=== PATIENT | female | born 1985 | race Caucasian/White ===

== ENCOUNTER 2018-01-17 19:42 | Emergency (ER) | END 2018-01-17 23:15 | disposition home or self-care (01) ==

== ENCOUNTER 2018-06-03 11:20 | Inpatient (IN) | payer MEDICAID ==
[~2018-06-03] VITALS: Ht 157.5 cm; Wt 107.4 kg
[~2018-06-03 11:20] MED LIST: PREN1TAB49 PO
[2018-06-03 11:27] VITALS: Ht 157.5 cm; Wt 107.4 kg
[2018-06-03 12:07] VITALS: BP 107/73; PULSE 65
--- NOTE | 2018-06-03 13:08 | TRIAGE ---
OB Triage Datetime Report Generated by CPN: 06/03/2018 13:08 Datetime: 06/03/2018 12:59 Vaginal Exam Dilatation (cms): 3.0 Effacement (%): 60 Station: -2 Exam By: may Datetime: 06/03/2018 12:58 Stage of : OB Triage Maternal Assessment Level of Consciousness: Fully Conscious Labor Evaluation Frequency: 2-6 Monitor Mode: External Duration (sec)2399: 90-130 Quality: Mild Resting Tone [place]: Relaxed Heart Rate FHR Baseline Rate: 125 Monitor Mode: External US Variability: Moderate 6-25 bpm Accelerations: 15X15 Decelerations: None Category: Category I Pain Assessment Pain Scale: 0 Pain Goal: 3 Membrane Status: Intact Vaginal Bleeding: None Datetime: 06/03/2018 12:24 Monitor Mode: External Monitor Mode: External US Datetime: 06/03/2018 11:26 Assessment Type: Triage Maternal Assessment Level of Consciousness: Fully Conscious DTR's/Clonus: DTRs 2+; No Clonus Headache: Denies Blurred Vision: No Respiratory Effort: Unlabored; Regular Rhythm; Equal Expansion Breath Sounds, Left: Clear and Equal Breath Sounds, Right: Clear and Equal Nausea/Vomiting: Denies RUQ Epigastric Pain: Denies Lower Extremities Edema: None Degree: None Upper Extremities Edema: None Degree: None Facial Edema: None Fall Risk Assessment History of Falling: (0) No Secondary Diagnosis: (0) No Ambulatory Aid: (0) Bedrest/Nurse Assist IV Therapy: (0) No Gait: (0) Normal/Bedrest/Immobile Mental Status: (0) Oriented to Own Ability Fall Score: 0 Fall Risk Score Definition: No Risk: No action required Datetime: 06/03/2018 11:25 Time of Arrival: 06/03/2018 11:17 EGA: 39.1 Arrived By: Ambulatory Arrived From: Home Chief Complaint: NST/BPP FOR OBESITY Movement: Present Contractions: Denies/Absent Rupture of Membranes: Denies Vaginal Bleeding: None Vaginal Discharge: Denies Recent Sexual Intercouse: Denies Abdominal Trauma: Not Applicable Patient Complaints: None Time Provider Notified: 06/03/2018 12:00 Provider Notified: HADADIAN Initial Plan: NST/BPP Datetime: 05/07/2018 12:44 Fall Score: 0 Fall Risk Score Definition: No Risk: No action required Datetime: 05/07/2018 12:43 EGA: 35.2
[2018-06-03] MEDS ORDERED: LACTATED RINGER'S 1,000 ML IV PRN (13:19)
[2018-06-03] MEDS ORDERED: METHYLERGONOVINE 0.2 MG INJ IM PRN (13:30)
[2018-06-03] MEDS ORDERED: OXYTOCIN 30 UNITS/LR 500 ML IV SCH ×4 (13:30→23:36)
[2018-06-03] MEDS ORDERED: OXYTOCIN 30 UNITS/LR 500 ML IV PRN (13:30)
[2018-06-03] MEDS ORDERED: CARBOPROST 250 MCG INJ IM PRN (13:30)
[2018-06-03] MEDS ORDERED: LIDOCAINE 1% (MPF) 30 ML INJ INJ PRN (13:30)
[2018-06-03] MEDS ORDERED: BUTORPHANOL 2 MG INJ IV PRN (13:30)
[2018-06-03] MEDS ORDERED: MISOPROSTOL 200 MCG TAB PR PRN (13:30)
[2018-06-03] MEDS ORDERED: OXYCODONE/ASPIRIN (4.88/325) TAB PO PRN (13:30)
[2018-06-03] MEDS ORDERED: IBUPROFEN 600 MG TAB PO PRN (13:30)
[2018-06-03] MEDS: LACTATED RINGER'S 1,000 ML IV SCH ×3 (14:38→21:35)
--- NOTE | 2018-06-03 16:33 | HP ---
Date/Time of Note Date/Time of Note DATE: 06/03/18 TIME: 16:28 OB - History Hx of Present Free Text/Dictation 32-year-old with single intrauterine at 39 weeks and 1 day with a NACHO of 06/09/2018 complaining of uterine contractions. She states good movement. She denies nausea, vomiting, shortness of breath, chest pain, headache, visual changes, vaginal bleeding or LOF. Chief Complaint: Uterine contractions Estimated Due Date: Jun 09, 2018 : 5 Para: 3 Spontaneous : 1 Therapeutic : 0 Care: Good Care Ultrasounds: Normal mid trimester US Obstetrical Complications: None Medical Complications: None Past Family/Social History * Past Medical, Surgical, Family and Obstetric Histories reviewed from chart. Blood Type: O+ Rubella: immune RPR/VDRL: Negative GBS Status: Negative OB Admission Exam Vital Signs Vital Signs Vital Signs Date Temp Pulse Resp B/P (MAP) Pulse Ox O2 O2 Flow FiO2 Time Delivery Rate 06/03/18 98.4 65 107/73 12:07 (84) Physical Exam HEENT: WNL Heart: Rhythm Normal Lungs: Clear Abdomen: WNL Extremities: Normal Cervical Dilatation: 4cm Effacement: 75% Station: -2 Membranes: Intact Heart Rate: 140's Accelerations: Accelerations Present Decelerations: No Decelerations Varibility: Moderate Contractions on Admission: < 5 Minutes Apart Intensity: Moderate Last 72 hours Lab Results CBC & BMP 06/03/18 14:17 OB Assessment/Plan Other plan: 32-year-old with single intrauterine at 39 weeks and 1 day in labor - FHR: No sign of metabolic acidosis- Category I - Continuous EFM, toco - CBC, blood type and screen - Analgesia options with R/B/A discussed in detail with patient - Epidural per patient request - Please see the orders - O+/RI - GBS: neg Obtain record Admission, procedures, expectations, risks and possible complications have been discussed in detail with the patient. Risk of vaginal delivery including but not limited to bleeding, infection, cervical laceration, placental retention, injury to fetus, blood transfusion, blood transfusion related infection, risk of anesthesia, adhesion, cervical laceration, episiotomy/laceration, possible delivery with risk of bleeding, infection, injury to other organs (bowel, bladder, ureter, vessels, nerves), injury to fetus, blood transfusion, blood transfusion related infection, risk of anesthesia, scar and hernia formation, needs for future , removal of uterus or any other indicated surgery discussed with the patient. She expressed understanding and repeats the risks. All of her questions were answered. She signed the informed consent. PHYSICIAN'S VERIFICATION OF INFORMED CONSENT The patient was counseled regarding the procedure, its indications, risks, potential complications and alternatives and any questions were answered. Consent was obtained. PLANNED PROCEDURE/TREATMENT: Vaginal delivery, episiotomy, repair of laceration possible delivery CONNIE BAGLEY Jun 03, 2018 16:33
--- NOTE | 2018-06-03 18:33 | PREAC ---
Date/Time of Note Date/Time of Note DATE: 06/03/18 TIME: 18:32 Anesthesia Eval and Record Evaluation Time Pre-Procedure Interview DATE: 06/03/18 TIME: 18:32 Age 32 Sex female NPO: 8 hrs Preoperative diagnosis IUP Planned procedure L&D Epidural Past Medical History Past Medical History: None Surgery & Anesthesia Issues No known issue Meds Anticoagulation: No Beta Chantelle within 24 hr: No Reason Beta Chantelle not given: Pt. not on B-Chantelle Reported Medications Vits W-Ca,Fe,Fa(<1MG) () 1 Tab Tablet, 1 TAB PO DAILY 09/21/11 Current Medications Lactated Ringer's 1,000 ml @ 125 mls/hr Q8H IV Last administered on 06/03/18at 14:38; Admin Dose 125 MLS/HR; Start 06/03/18 at 13:19 Butorphanol Tartrate (Stadol) 2 mg Q2H PRN IV .PAIN; Start 06/03/18 at 13:30 Lidocaine (Xylocaine 1% (Mpf)) 30 ml ONCE PRN INJ .EPISIOTOMY; Start 06/03/18 at 13:30 Oxytocin/Lactated Ringer's 500 ml @ 500 mls/hr ONCE POST IV ; Start 06/03/18 at 13:30 Oxytocin/Lactated Ringer's 500 ml @ 125 mls/hr POST IV ; Start 06/03/18 at 13:30 Ibuprofen (Motrin) 600 mg ONCE PRN PO .PAIN 1-5; Start 06/03/18 at 13:30 Oxycodone/Aspirin (Percodan) 2 tab ONCE PRN PO .PAIN 6-10; Start 06/03/18 at 13:30 Lactated Ringer's 1,000 ml @ 2,000 mls/hr Q30M PRN IV .ANESTHESIA Last administered on 06/03/18at 18:20; Admin Dose 2,000 MLS/HR; Start 06/03/18 at 13:19 Oxytocin/Lactated Ringer's 500 ml @ 0 mls/hr ONCE PRN IV .VAGINAL BLEEDING; Sta rt 06/03/18 at 13:30 Methylergonovine Maleate (Methergine) 0.2 mg ONCE PRN IM .VAGINAL BLEEDING; Sta rt 06/03/18 at 13:30 Carboprost Tromethamine (Hemabate) 250 mcg ONCE PRN IM .VAGINAL BLEEDING; Start 06/03/18 at 13:30 Misoprostol (Cytotec) 1,000 mcg ONCE PRN DC .VAGINAL BLEEDING; Start 06/03/18 at 13:30 Meds reviewed: Yes Allergies Coded Allergies: No Known Allergy (Unverified , 09/21/11) Allergies Reviewed: Yes Labs/Studies Labs Reviewed: Reviewed by anesthesiologist Result Diagram: 06/03/18 1417 Laboratory Tests 06/03/18 14:17 Blood Bank Test 06/03/18 14:17 Antibody Screen NEGATIVE Blood Type O POSITIVE Rh Immune Globulin Candidate NO test: Positive Studies: ECG Pre-procedure Exam Last vitals Vital Signs Date Temp Pulse Resp B/P (MAP) Pulse Ox O2 O2 Flow FiO2 Time Delivery Rate 06/03/18 98.4 65 107/73 12:07 (84) Airway: Adequate mouth opening, Adequate thyromental dist Mallampati: Mallampati II Teeth: Normal Lung: Normal Heart: Normal ASA Physical Status ASA physical status: 2 Emergency: None Planned Anesthetic Neuraxial: Epidural Planned Pain Management Epidural, Parenteral pain med Pre-operative Attestations Prior to commencing anesthesia and surgery, the patient was re-evaluated, there was verification of: *The patient's identity *The results of appropriate recent lab work and preoperative vital signs *The above evaluation not changing prior to induction *Anesthetic plan, risk benefits, alternative and complications discussed with patient/family; questions answered; patient/family understands, accepts and wishes to proceed. COLLETTE MODI MD Jun 03, 2018 18:33
[2018-06-03] MEDS ORDERED: FENTAnyl 2MCG/ML-ROPIV 0.2% 100 ML ONE (18:37)
[2018-06-03] MEDS ORDERED: FENTAnyl 2MCG/ML-ROPIV 0.2% 100 ML BAG EPI SCH (19:00)
[2018-06-03] MEDS ORDERED: ONDANSETRON 4 MG INJ IV PRN (19:00)
[2018-06-03] MEDS ORDERED: NALOXONE (0.4 MG/ML) INJ IV PRN (19:00)
[2018-06-03] MEDS ORDERED: DIPHENHYDRAMINE 50 MG INJ IV PRN (19:00)
--- NOTE | 2018-06-03 23:36 | LDN ---
Date/Time of Note Date/Time of Note DATE: 06/03/18 TIME: 23:32 Delivery Summary 06/03/2018 Placenta Delivered: Spontaneously Meconium: none Episiotomy: No Indication for episiotomy N/A Perineal laceration: 1 Laceration repair: First degree perineal laceration, repaired using 3-0 chromic Anesthesia type: Epidural Estimated blood loss: 200 Sponge & Needle done & correct: Yes All needle counts correct: Yes Any foreign bodies felt in the: No Delivery Information Sex Infant Sex: female Apgars 1 Minute: 8 5 Minute: 9 Suctioning Nose & mouth suctioned at stanislaw: Yes Delee suction performed: Yes Umbilical Cord Umbilical cord with: 3 Vessels Cord presentations: no nuchal cord Cord Blood was obtained: Yes Mother & Baby Disposition Disposition Placenta delivered complete. Hemostasis complete. No complications Fundus was firm at the end of the delivery first degree perineal laceration repaired using 3-0 chromic EMILY BRISCOE MD Jun 03, 2018 23:36
[2018-06-04] MEDS ORDERED: ONDANSETRON 4 MG INJ IV PRN
[2018-06-04] MEDS ORDERED: MISOPROSTOL 200 MCG TAB PR PRN
[2018-06-04] MEDS ORDERED: METHYLERGONOVINE 0.2 MG INJ IM PRN
[2018-06-04] MEDS ORDERED: CARBOPROST 250 MCG INJ IM PRN
[2018-06-04] MEDS ORDERED: WITCH HAZEL/GLYCERIN PAD PR PRN
[2018-06-04] MEDS ORDERED: OXYTOCIN 30 UNITS/LR 500 ML IV PRN
[2018-06-04] MEDS ORDERED: DIPHENHYDRAMINE 25 MG CAP PO PRN
[2018-06-04] MEDS ORDERED: LANOLIN HPA 1 PKT TOP PRN
[2018-06-04] MEDS ORDERED: NACL 0.9% 3 ML SYG IV SCH
[2018-06-04] MEDS ORDERED: ZOLPIDEM 5 MG TAB PO PRN
[2018-06-04 01:10] VITALS: BP 104/61; PULSE 61; RESP 18
[2018-06-04] MEDS: IBUPROFEN 600 MG TAB PO SCH ×5 (01:25→23:43)
[2018-06-04 03:35] VITALS: BP 121/75; PULSE 71; RESP 18
[2018-06-04] MEDS: HYDROCODONE/APAP (5/325) TAB PO PRN (09:11)
[2018-06-04] MEDS: SENNA/DOCUSATE NA (8.6MG/50MG) TAB PO SCH ×3 (09:11→20:16)
[2018-06-04 09:29] VITALS: BP 97/56; PULSE 65; RESP 18
--- NOTE | 2018-06-04 11:28 | PN ---
Date/Time of Note Date/Time of Note DATE: 06/04/18 TIME: 11:24 OB Subjective Subjective Subjective Vaginal bleeding moderate. Pumping her breast. Ambulating. Urinated. Denies any complaint. Reports only cramps with breast-feeding. Denies any dizziness or lightheadedness. OB Objective Objective Objective General appearance: Alert and oriented x4 does not appear to be in any acute distress Abdomen: Soft, fundus firm and non tender Extremities: No calf tenderness, + 2 lower extremity edema, Breasts: no evidence of mastitis or fissure noted VS - Last 72 Hours, by Label Date Temp Pulse Resp B/P (MAP) Pulse Ox O2 O2 Flow FiO2 Time Delivery Rate 06/04/18 98.3 65 18 97/56 (70) Room Air 09:29 06/04/18 98.1 71 18 121/75 Room Air 03:35 (90) 06/04/18 98.0 61 18 104/61 Room Air 01:10 (75) 06/03/18 98.4 65 107/73 12:07 (84) Laboratory Tests Test 06/03/18 14:17 06/04/18 00:23 06/04/18 07:54 White Blood Count 9.1 10^3/ul Red Blood Count 4.49 10^6/ul Hemoglobin 13.4 g/dl 12.8 g/dl Hematocrit 39.7 % 39.0 % Mean Corpuscular Volume 88.4 fl Mean Corpuscular 29.8 pg Hemoglobin Mean Corpuscular 33.8 g/dl Hemoglobin Concent Red Cell Distribution 14.1 % Width Platelet Count 180 10^3/UL Mean Platelet Volume 11.4 fl Immature Granulocytes % 0.700 % Neutrophils % 69.0 % Lymphocytes % 25.8 % Monocytes % 4.1 % Eosinophils % 0.3 % Basophils % 0.1 % Nucleated Red Blood Cells 0.0 /100WBC % Immature Granulocytes # 0.060 10^3/ul Neutrophils # 6.3 10^3/ul Lymphocytes # 2.3 10^3/ul Monocytes # 0.4 10^3/ul Eosinophils # 0.0 10^3/ul Basophils # 0.0 10^3/ul Nucleated Red Blood Cells 0.0 10^3/ul # Prothrombin Time 12.3 Sec Prothrombin Time Ratio 1.0 INR International 0.90 Normalized Ratio Activated 28.1 Sec Partial Thromboplast Time Lab Scanned Report [facility] [id number] OB Assessment/Plan Other Assessment: s/p PPD #1 Doing well After pain with breast feeding Reassured Advised th patient to take NSAIDS for pain Routine post care EMILY BRISCOE MD Jun 04, 2018 11:28
[2018-06-04 16:00] VITALS: BP 112/56; PULSE 94; RESP 18
--- NOTE | 2018-06-04 18:45 | PN ---
Date/Time of Note Date/Time of Note DATE: 06/04/18 TIME: 18:44 OB Subjective Subjective Subjective Denies any complaint. Breast-feeding. Ambulating. Denies any dizziness or lightheadedness. Urinated. OB Objective Objective Objective General appearance: Alert and oriented x4 does not appear to be in any acute distress Abdomen: Soft, fundus palpable below the umbilicus and nontender Breast: No evidence of mastitis or fissure Extremities no evidence of calf tenderness, click or edema VS - Last 72 Hours, by Label Date Temp Pulse Resp B/P (MAP) Pulse Ox O2 O2 Flow FiO2 Time Delivery Rate 06/04/18 98.4 94 18 112/56 Room Air 16:00 (74) 06/04/18 98.3 65 18 97/56 (70) Room Air 09:29 06/04/18 98.1 71 18 121/75 Room Air 03:35 (90) 06/04/18 98.0 61 18 104/61 Room Air 01:10 (75) 06/03/18 98.4 65 107/73 12:07 (84) Laboratory Tests Test 06/03/18 14:17 06/04/18 00:23 06/04/18 07:54 White Blood Count 9.1 10^3/ul Red Blood Count 4.49 10^6/ul Hemoglobin 13.4 g/dl 12.8 g/dl Hematocrit 39.7 % 39.0 % Mean Corpuscular Volume 88.4 fl Mean Corpuscular 29.8 pg Hemoglobin Mean Corpuscular 33.8 g/dl Hemoglobin Concent Red Cell Distribution 14.1 % Width Platelet Count 180 10^3/UL Mean Platelet Volume 11.4 fl Immature Granulocytes % 0.700 % Neutrophils % 69.0 % Lymphocytes % 25.8 % Monocytes % 4.1 % Eosinophils % 0.3 % Basophils % 0.1 % Nucleated Red Blood Cells 0.0 /100WBC % Immature Granulocytes # 0.060 10^3/ul Neutrophils # 6.3 10^3/ul Lymphocytes # 2.3 10^3/ul Monocytes # 0.4 10^3/ul Eosinophils # 0.0 10^3/ul Basophils # 0.0 10^3/ul Nucleated Red Blood Cells 0.0 10^3/ul # Prothrombin Time 12.3 Sec Prothrombin Time Ratio 1.0 INR International 0.90 Normalized Ratio Activated 28.1 Sec Partial Thromboplast Time Rapid Plasma Reagin NONREACTIVE Lab Scanned Report [facility] [id number] OB Assessment/Plan Other Assessment: Post day #1 Doing well Continue routine care Anticipate DC home tomorrow EMILY BRISCOE MD Jun 04, 2018 18:45
[2018-06-04 19:30] VITALS: BP 109/59; PULSE 73; RESP 18
[2018-06-05 04:00] VITALS: BP 113/76; PULSE 88; RESP 18
[2018-06-05] MEDS: IBUPROFEN 600 MG TAB PO SCH ×3 (05:19→17:25)
[2018-06-05 08:00] VITALS: BP 110/70; PULSE 67; RESP 18
[2018-06-05] MEDS: SENNA/DOCUSATE NA (8.6MG/50MG) TAB PO SCH (08:32)
[2018-06-05] MEDS: HYDROCODONE/APAP (5/325) TAB PO PRN ×2 (08:32→16:29)
--- NOTE | 2018-06-05 13:02 | PAC ---
Date/Time of Note Date/Time of Note DATE: 06/05/18 TIME: 13:02 Post-Anesthesia Notes Post-Anesthesia Note Last documented vital signs Vital Signs Date Temp Pulse Resp B/P (MAP) Pulse Ox O2 O2 Flow FiO2 Time Delivery Rate 06/05/18 98.0 67 18 110/70 Room Air 08:00 (83) Activity: WNL Respiratory function: WNL Cardiovascular function: WNL Mental status: Baseline Pain reasonably controlled: Yes Hydration appropriate: Yes Nausea/Vomiting absent: Yes Comments BP:112/56, P:78, Spo2:100%, T:98,6 COLLETTE MODI MD Jun 05, 2018 13:02
--- NOTE | 2018-06-05 15:10 | DS ---
Date/Time of Note Date/Time of Note DATE: 06/05/18 TIME: 15:08 Obstetrical Discharge Record Final Diagnosis Final Diagnosis: Term delivered Vaginal Delivery Obstetrical Delivery: Spontaneous, Laceration, Repaired Complications Augmentation: No Induction: No Rupture of Membranes: No Condition on Discharge Physical Assessment Last Vitals: vss afebrile Voiding: Yes Bowel Movement: No Breast: Soft, non-tender Fundus: Firm Abdomen and Incision: n/a Episiotomy: n/a Calf Tenderness: Yes (on left calf berny pos doppler u/s bilateral LE if neg discharge home) Patient Condition: Stable ANGELICA CORREIA MD Jun 05, 2018 15:10
--- NOTE | 2018-06-05 15:14 | PD.PPDC ---
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
[2018-06-05 15:29] VITALS: BP 119/69; PULSE 65; RESP 18
== END 2018-06-05 18:45 | disposition home or self-care (01) | DRG 807 ==
LOC: L-D 11:20 → OBT 11:20 → L-D 13:07 → OBT 13:09 → L-D 17:37 → MS1 06-04 01:02
PROVIDERS: ADMIT Obstetrics & Gynecology; ATTEND Obstetrics & Gynecology
PROC: 10E0XZZ Delivery of Products of Conception, External Approach (ICD-10-PCS; principal; 2018-06-03)
PROC: 0HQ9XZZ Repair Perineum Skin, External Approach (ICD-10-PCS; 2018-06-03)
DX: O70.0 First degree perineal laceration during delivery (principal); Z37.0 Single live birth; Z3A.39 39 weeks gestation of pregnancy
CPT/HCPCS: 62319; 76818; 85014; 85018; 85025; 85610; 85730; 86592; 86850; 86900; 86901; 90686; 93970; G0463; J2405; J2590; J3010; J7120